=== PATIENT | female | born 1995 | race African-American/Black ===

== ENCOUNTER 2017-05-18 08:22 | Observation (INO) ==
--- NOTE | 2017-05-18 09:57 | Ultrasound Report ---
Procedure: Ultrasound OB First Trimester Findings: Vaginal bleeding positive test Transabdominal and transvaginal imaging utilized to visualize structures. Uterus: 11.3 x 6.7 x 8.4 cm. Erma Rump Length: No pole demonstrated. Gestational Sac: Single gestational sac noted. Heart Rate: None Enlarged yolk sac is present. Placenta cannot be identified definitely at this estimated gestational age. Amniotic fluid is appropriate for this estimated gestational age Left Ovary:3.3 cmx1.9 cmx2.2 cm. Normal color flow with small follicular cyst Right Ovary: 2.2 cmx,1.5 cmx,1.9 cm. Normal color flow with small follicular cyst The bladder is contracted No free fluid present. Impression: 1. Question component of blighted ovum/anembryonic with enlargement of the SAC present without obvious pole demonstrated. Follow-up examinations may be beneficial Ultrasound images were captured and stored PROCEDURE INTERPRETED AT [facility]PARTMENT OF RADIOLOG[facility] Final Report Signed by: Dr. Pj Wilkinson
--- NOTE | 2017-05-18 09:57 | Emergency Department Note ---
Ankur Sung Manpreet, am scribing for, and in the presence of, Estuardo Zaragoza MD 09: 55. Mila Sung James D, MD, personally performed the services described in this documentation, ascribed by Micky Pascual in my presence, and it is both accurate and complete [id number] . Arrival - Arrival Chief Complaint: Urogenital - Female Stated Complaint: and bleeding, about 12 weeks ED Nursing Triage Note: pt ambulatory to triage with c/o having vaginal bleeding onset today , pt states she woke up at 0700 today and noticed she was bleeding and having cramps. ... pt is 8wks gestation with due date of november 22. pt is a . Mode of Arrival: Ambulatory Limitations: No Limitations Source: Patient Time Seen by Provider: 05/18/17 08:52 - History of Present Illness HPI Narrative: Pt is a 22 y/o female who represents [facility] ED with vaginal bleeding onset at 0700 Tuesday. Pt states she woke up today and noticed bleeding and having lower Abd cramps. Pt states she noticed clots in her discharge today. Pt is 8 weeks into her second . A0. Pt's LNMP was during Ed of January. Pt states she went to Dr. Hughes's office yesterday. Pt denies any dysuira, vomiting, fever, or N/V/D. No other pains/complaints reported to the ED. Patient reports that her hCG yesterday at Dr. Hughes's office was greater than 2000. Onset (ago): hour(s) (a 0700) Consistency: constant Severity: moderate Allergies/Adverse Reactions: Allergies Allergy/AdvReac Type Severity Reaction Status Date / Time ampicillin [From Unasyn] Allergy Intermediate INJECTION Verified 05/18/17 08:41 SITE REACTION sulbactam [From Unasyn] Allergy Intermediate INJECTION Verified 05/18/17 08:41 SITE REACTION Home Medications: Home Medications Medication Instructions Recorded Confirmed Type No Known Home Medications [No 05/16/17 05/16/17 History Known Home Medications] Review of System - Review of System 12 point system: reviewed and no additional remarkable complaints except as stated - Review of System Constitutional: Absent: chills, diaphoresis, fever Respiratory: Absent: cough, respiratory distress, wheezing Cardiovascular: Absent: chest pain Gastrointestinal: Present: abdominal pain ("Abd cramping"). Absent: nausea, vomiting, diarrhea, hematemesis Genitourinary female: Present: discharge (Vaginal bleeding). Absent: dysuria Musculoskeletal: Absent: arm pain, back pain, leg pain, neck pain Neurological: Absent: headache, weakness Medical,Surgical,& Family Hx - Family History Family History: Reports;: Family Hypertension (AUNT) - Social History Smoking Status: Never smoker Frequency of Alcohol Use: None Type of Drug Use: None Exam Vital Signs: Vital Signs Temperature 97.9 F 05/18/17 08:38 Pulse Rate 89 05/18/17 08:38 Respiratory Rate 18 05/18/17 08:38 Blood Pressure 110/77 05/18/17 08:38 O2 Sat by Pulse Oximetry 100 05/18/17 08:38 GENERAL: This is a well-nourished well-developed black female in no apparent distress. VITAL SIGNS: Reviewed HEENT: Head is atraumatic and normocephalic. Pupils are equal round react to light. Extraocular movements are intact. Oropharynx is benign with moist mucous membranes. ABDOMEN: Abdomen is soft, nontender to palpation. There are no abdominal abnormal masses palpated. There is no organomegaly. Bowel sounds are present and active. SKIN: Skin is warm and dry. No rash. EXTREMITIES: Patient has full range of motion without tenderness. There is no pedal edema. NEUROLOGIC: Awake alert and oriented 4. Cranial nerves II through XII are grossly intact. Motor is 5 over 5 in all extremities bilaterally. Course - Consultations Consultation #1: Discussed with Dr. Sean Hughes. Patient will be admitted to . She will need undergo D&C for incomplete AB. Patient will be started on Pitocin. Time: 10:27 Results - Labs Lab Results: I have reviewed the patients labs Labs: Laboratory Tests 05/18/17 05/18/17 09:10 09:47 HCG Beta Subunit 1405.0 H Urine Color Yellow Urine Appearance Clear Urine pH 5.0 Ur Specific [place] 1.012 Urine Protein Negative Urine Glucose (UA) Negative Urine Ketones Negative Urine Blood Small Urine Nitrate Negative Urine Bilirubin Negative Urine Urobilinogen < 2.0 H Urine Leukocytes Negative Urine RBC 1 Urine WBC <1 Ur Squamous Epith Cells Occasional Urine Mucus Occasional Ur Culture Indicated? Not indicated - Diagnostic Findings Procedure: Ultrasound: report reviewed by me (Questionable blighted ovum or an embryonic .) Disposition Clinical Impression: Incomplete Case discussed with: patient Disposition: Disch To Home/Self Care Condition: Stable
[2017-05-18 10:05] LABS: Apearance,Urine CLEAR (Clear); Bilirubin,Urine Negative (Negative); Blood, Urine Small mg/dL (Negative); Glucose,Urine (UA) Negative (Negative); Ketones,Urine Negative (Negative); Mucus,Urine Occasional /LPF (Occasional); Nitrite,Urine Negative (Negative); Protein,Urine Negative; RBC,Urine 1 /HPF (0-4); Squamous Epithelial Cell,Urine Occasional /HPF (0-10); Urine Color Yellow (Yellow); Urine Specific Gravity 1.012 (1.001-1.035); Urine Urobilinogen < 2.0 EU/DL (0.2-1.0); WBC,Urine <1 /HPF (0-6)
[2017-05-18] MEDS ORDERED: OXYTOCIN/LR 20 UNIT/1,000 ML BAG IV ONE (10:24)
[2017-05-18] MEDS ORDERED: BISACODYL 10 MG SUPP RECTAL PRN (10:25)
[2017-05-18] MEDS ORDERED: MAGNESIUM HYDROXIDE SUSP 30 ML UDCUP PO PRN (10:25)
[2017-05-18] MEDS ORDERED: ONDANSETRON 4 MG/2 ML VIAL IV PRN (10:25)
[2017-05-18] MEDS ORDERED: IBUPROFEN 800 MG TABLET PO PRN (10:25)
[2017-05-18] MEDS ORDERED: LACTATED RINGERS 1,000 ML IV SCH (10:30)
[2017-05-18] MEDS: ACETAMINOPHEN 325 MG TABLET PO PRN (14:40)
--- NOTE | 2017-05-18 18:23 | OB/GYN History & Physical ---
History of Present Illness Chief complaint: Incomplete AB History of present illness: Ms. Diaz is a 22 year old female 2 para 1 who presents with vaginal bleeding to the emergency room. Titers 24 hours earlier was approximately 2200. Today the titers approximately 1400. Ultrasound demonstrated gestational sac. Bleeding has been somewhat minimal to moderate. This patient is stable and without any distress at this time. We will plan on continuing IV Pitocin repeat and a ultrasound in the a.m. Patient is passed all products of conception will then possibly will be discharged. If not plan on a dilatation and curettage. Home Medications Medication Instructions Recorded Confirmed Type No Known Home Medications [No 05/16/17 05/18/17 History Known Home Medications] Allergies Allergy/AdvReac Type Severity Reaction Status Date / Time ampicillin [From Unasyn] Allergy Intermediate INJECTION Verified 05/18/17 08:41 SITE REACTION sulbactam [From Unasyn] Allergy Intermediate INJECTION Verified 05/18/17 08:41 SITE REACTION Medical,Surgical,& Family Hx - Surgical History Reproductive Surgeries: Surgical HX of;: Section (2015) - Family History Family History: Reports;: Family Hypertension (AUNT), Family Stroke (AUNT & UNCLE) - Social History Smoking Status: Never smoker Frequency of Alcohol Use: None Type of Drug Use: None Exam PROPAGATOR - Constitutional Vitals: Vital Signs Temp Pulse Pulse Resp BP BP Pulse Ox 05/18/17 17:40 18 05/18/17 17:00 18 05/18/17 15:51 97.8 F 66 20 99/64 05/18/17 12:00 98.2 F 66 16 107/56 05/18/17 11:10 98.2 F 78 16 107/66 05/18/17 10:30 67 16 104/75 100 05/18/17 09:45 61 16 92/71 100 05/18/17 08:46 67 16 107/56 99 05/18/17 08:38 97.9 F 89 18 110/77 100 Pulse Ox 05/18/17 17:40 05/18/17 17:00 05/18/17 15:51 98 05/18/17 12:00 100 05/18/17 11:10 100 05/18/17 10:30 05/18/17 09:45 05/18/17 08:46 05/18/17 08:38 General appearance: no acute distress - Antepartum / Post Antepartum Exam Vagina: Present: normal moisture (Vaginal bleeding) - Head Head exam: Present: normal inspection - Eye Eye exam: Present: EOMI Pupils: Present: GERARDO - ENT ENT exam: Present: normal exam - Neck Neck exam: Present: normal inspection - Respiratory Respiratory exam: Present: clear to auscultation bilaterally - Breast Breasts: as per HPI Menstruation: as per HPI - Cardiovascular Cardiovascular exam: Present: regular rate and rhythm - GI/Abdominal GI/Abdominal exam: Present: normal bowel sounds - Extremities Exam Extremities exam: Present: normal inspection - Back Exam Back exam: Present: normal inspection - Neurological Exam Neurological exam: Present: alert, oriented X3 - Psychiatric Psychiatric exam: Present: normal affect - Skin Skin exam: Present: normal color Assessment and Plan (1) Threatened miscarriage Status: Acute Assessment and plan: IV Pitocin, repeat ultrasound in a.m., consent for dilatation and curettage. Current Visit: No
[2017-05-18] MEDS: OXYTOCIN/LR 20 UNIT/1,000 ML BAG IV SCH (19:19)
[2017-05-18] MEDS: DOCUSATE SODIUM 100 MG CAPSULE PO SCH (21:44)
[2017-05-19] MEDS: OXYTOCIN/LR 20 UNIT/1,000 ML BAG IV SCH (02:46)
[2017-05-19] MEDS: MEPERIDINE 50 MG/1 ML VIAL IV PRN ×2 (06:09→09:11)
--- NOTE | 2017-05-19 08:42 | Ultrasound Report ---
History: Retained products of conception Date: 05/19/2017 Study: Obstetrical ultrasound limited Comparison exam: 05/18/2017 Real-time ultrasound images are captured and archived. There is thought to be a residual irregular elongated gestational sac in the uterine body. There is no definite pole. The exam is otherwise unchanged. Impression: There is sonographic evidence of retained products of conception PROCEDURE INTERPRETED AT [facility] Final Report Signed by: Dr. Keke Szymanski
[2017-05-19] MEDS: DOCUSATE SODIUM 100 MG CAPSULE PO SCH (09:18)
--- NOTE | 2017-05-19 10:58 | Operative Note ---
Date of procedure: 05/19/17 Procedure: Preoperative diagnosis: Incomplete AB Postoperative diagnosis: Same Anesthesia: General. endotracheal anesthesia Estimated blood loss: [] 50 Surgeon: Dr. Hughes Procedure: Dilatation and curettage The patient was taken to operating suite and placed in supine position and preparation of the perineum. A weighted speculum was placed in the posterior portion vagina and a single-tooth tenaculum was used to grasp the anterior lip of the cervix. The cervix was dilated to [8] [place]uvian A suction curette was then placed inside. Gentle scraping was obtained in all 4 quadrants. [A moderate amount of tissue was obtained] at this particular time. Hemostasis was maintained at this particular time. Patient was extubated in the operating room and taken to recovery room in stable condition. Surgeon / Physician: Cedric Hughes Discharge Plan - Discharge Data Condition at Discharge: Stable Discharge Diet: advance to your usual diet Activity: resume usual activities as tolerated Hygiene: no restrictions Weight Bearing at Discharge: full weight bearing Driving: no restrictions Contact your physician if you experience:: fever over 101, Bleeding - Discharge Medications New HYDROcodone/ACETAMIN 5-325 [[place] 5-325] 1 tablet PO Q4H #30 tablet Ibuprofen Tab [Motrin Tab] 800 mg PO Q8H PRN #30 tablet PRN Reason: Pain Moderate (4-7) No Action No Known Home Medications [No Known Home Medications] - Follow Up or Referral - Forms/Instructions
--- NOTE | 2017-05-19 12:35 | Anesthesia Post-Op ---
Anesthesia Post OP - Post Ansesthetic Evaluation Patient seen in post op: Yes Resp: within normal limits CV: within normal limits Mental: within normal limits Temp: within normal limits [id number]: within normal limits Nausea and Vomiting: within normal limits Pain: within normal limits
[2017-05-19] MEDS: ACETAMINOPHEN 325 MG TABLET PO PRN (16:31)
[2017-05-19 16:54] VITALS: BP 90/61
--- NOTE | 2017-05-20 12:19 | Pathology Report from [facility] ---
[facility] [place] ACCESSION # : [id number] PATIENT NAME : Griselda Calabrese ORDERING DR : SHERIF MADISON MD CLINICAL HX: Incomplete POST-OP DX: Same SPECIMEN INFO: #1 & #2 Uterine contents GROSS DESCRIPTION: Received in formalin in two containers labeled GRISELDA CALABRESE & # 1 & #2 with the first container containing a pink brock tissue fragment measuring 6.5 x 2.9 cm with a 1.5 x 1.4 cm fluid filled sac present. Chorionic villi is grossly identified. No tissue is definitely seen. Telecommunication Engineer tissue is submitted in cassette A. Container #2 is a specimen trap containing multiple fragments of hyperemic brock tissue and some clotted blood measuring 8.9 x 6.4 cm in aggregate. Possible chorionic villi is identified. Telecommunication Engineer tissue is submitted in cassette B. DIAGNOSIS FOR GRISELDA CALABRESE: #1 UTERINE CONTENTS, D & C: Fragments of chorionic villi, membranes, and decidualized endometrium admixed with blood, c/ w products of conception.#2 UTERINE CONTENTS, D & C: Fragments of chorionic villi and decidualized endometrium admixed with blood and necrosis, c/w products of conception. COLLECTED DATE: 05/19/2017 [facility] REPORT DATE: 05/20/2017 ELECTRONICALLY SIGNED BY: Priyanka Flores M.D. 05/20/2017 - 10:24:57 JANA
== END 2017-05-19 19:40 | disposition home or self-care (01) ==
LOC: N.ED 08:22 → N.EDINP 08:22 → N.OB 11:03
PROVIDERS: ADMIT Obstetrics & Gynecology; ATTEND Obstetrics & Gynecology

== ENCOUNTER 2018-04-05 06:16 | Inpatient (IN) ==
[2018-04-05] MEDS ORDERED: FAMOTIDINE 20 MG/2 ML VIAL IV ONE (06:28)
[2018-04-05] MEDS ORDERED: CITRIC ACID/SODIUM CITRATE 30 ML UDCUP PO ONE (06:28)
[2018-04-05] MEDS ORDERED: CLINDAMYCIN INJ 900 MG in PREMIX 1 EACH IV ONE (06:28)
[2018-04-05 06:57] LABS: Basophils % 0.1 % (0.0-0.8); Eosinophils # 0.1 10*3/uL (0.0-0.87); Eosinophils % 1.6 % (0.00-10.9); Hematocrit 35.3 VOL% (35.7-47.0); Hemoglobin 11.3 GM/DL (12.0-16.0); Immature Granulocytes % 0.4 %; Immature Granulocytes Absolute 0.03 #; Lymphocytes # 1.9 10*3/uL (1.4-4.0); Lymphocytes % 28.2 % (21.3-54.2); Mean Corpuscular Hemoglobin 27 PG (27-34); Mean Corpuscular Volume 82.7 FL (87-102); Mean Platelet Volume 9.9 FL (9.6-12.0); Monocytes # 0.6 10*3/uL (0.11-0.8); Monocytes % 9.5 % (1.7-12.7); Neutrophils % 60.2 % (38.7-73.9); Platelet Count 236 T/CUMM (130-400); Red Blood Count 4.27 MC/CUMM (3.8-5.5); Red Cell Distribution Width 15.7 % (9.3-17.3); White Blood Count 6.7 T/CUMM (4-12)
[2018-04-05] MEDS ORDERED: OXYTOCIN 10 UNIT/ML VIAL IM ONE (07:16)
[2018-04-05] MEDS ORDERED: OXYTOCIN/LR 30 UNIT/1,000 ML BAG IV ONE (07:16)
[2018-04-05] MEDS: LACTATED RINGERS 1,000 ML IV SCH ×2 (07:17→08:12)
[2018-04-05 07:46] LABS: Alanine Aminotransferase 31 U/L (13-56); Albumin 2.3 G/DL (3.4-5.0); Alkaline Phosphatase 146 U/L (45-117); Aspartate Amino Transferase 21 U/L (0-37); Bilirubin,Total < 0.39 MG/DL (0.2-1.0); Blood Urea Nitrogen 6 MG/DL (7-18); Calcium 8.2 MG/DL (8.5-10.1); Glucose 77 MG/DL (74-106); Osmolality,Calculated 271.7 MOS/KG (273-304); Potassium 3.5 MMOL/L (3.5-5.1); Sodium 138 MMOL/L (136-145); Total Protein 6.2 G/DL (6.4-8.3)
[2018-04-05 10:03] LABS: Cord Venous Blood HCO3 22.6 MMOL/L; Cord Venous Blood PCO2 38.9 MMHG; Cord Venous Blood PO2 35.5
[2018-04-05] MEDS ORDERED: fentaNYL 100 MCG/2 ML VIAL ONE (10:12)
[2018-04-05] MEDS ORDERED: PHENYLEPHRINE 1 MG/10 ML SYRINGE IV ONE (10:12)
[2018-04-05] MEDS ORDERED: ONDANSETRON 4 MG/2 ML VIAL ONE (10:13)
[2018-04-05] MEDS ORDERED: MORPHINE 10 MG/10 ML VIAL ONE (10:13)
[2018-04-05] MEDS ORDERED: MIDAZOLAM 2 MG/2 ML VIAL ONE (10:13)
[2018-04-05 10:17] LABS: Apearance,Urine CLEAR (Clear); Bilirubin,Urine Negative (Negative); Blood, Urine Negative (Negative); Glucose,Urine (UA) Negative (Negative); Ketones,Urine Negative (Negative); Mucus,Urine Occasional /LPF (Occasional); Nitrite,Urine Negative (Negative); Protein,Urine Negative; RBC,Urine 2 /HPF (0-4); Squamous Epithelial Cell,Urine Occasional /HPF (0-10); Urine Color Yellow (Yellow); Urine Specific Gravity 1.008 (1.001-1.035); Urine Urobilinogen < 2.0 EU/DL (0.2-1.0); WBC,Urine <1 /HPF (0-6)
[2018-04-05] MEDS ORDERED: ONDANSETRON 4 MG/2 ML VIAL IV PRN (10:57)
[2018-04-05] MEDS ORDERED: ACETAMINOPHEN 325 MG TABLET PO PRN (10:57)
[2018-04-05] MEDS ORDERED: OXYTOCIN/LR 20 UNIT/1,000 ML BAG IV ONE (13:00)
[2018-04-05] MEDS: HYDROmorphone 2 MG/1 ML VIAL IV PRN ×3 (14:30→19:53)
[2018-04-05] MEDS: CLINDAMYCIN INJ 900 MG in PREMIX 1 EACH IV SCH (17:44)
[2018-04-05 17:50] LABS: Basophils % 0.2 % (0.0-0.8); Eosinophils # 0.1 10*3/uL (0.0-0.87); Eosinophils % 0.8 % (0.00-10.9); Hematocrit 31.1 VOL% (35.7-47.0); Hemoglobin 10.4 GM/DL (12.0-16.0); Immature Granulocytes % 0.4 %; Immature Granulocytes Absolute 0.04 #; Lymphocytes # 1.8 10*3/uL (1.4-4.0); Lymphocytes % 19.6 % (21.3-54.2); Mean Corpuscular HGB Conc 33.4 GM/DL (32-36); Mean Corpuscular Hemoglobin 27 PG (27-34); Mean Corpuscular Volume 81.4 FL (87-102); Mean Platelet Volume 10.1 FL (9.6-12.0); Monocytes # 0.9 10*3/uL (0.11-0.8); Neutrophils # 6.2 10*3/uL (1.4-7.4); Platelet Count 213 T/CUMM (130-400); Red Blood Count 3.82 MC/CUMM (3.8-5.5); Red Cell Distribution Width 15.6 % (9.3-17.3)
[2018-04-05] MEDS: IBUPROFEN 800 MG TABLET PO PRN (20:05)
[2018-04-05] MEDS: DOCUSATE SODIUM 100 MG CAPSULE PO SCH (22:59)
[2018-04-06] MEDS: CLINDAMYCIN INJ 900 MG in PREMIX 1 EACH IV SCH (01:44)
[2018-04-06] MEDS: IBUPROFEN 800 MG TABLET PO PRN ×2 (03:59→21:26)
[2018-04-06 04:37] LABS: Basophils % 0.2 % (0.0-0.8); Eosinophils # 0.1 10*3/uL (0.0-0.87); Eosinophils % 0.7 % (0.00-10.9); Hematocrit 31.3 VOL% (35.7-47.0); Hemoglobin 10.1 GM/DL (12.0-16.0); Immature Granulocytes % 0.7 %; Immature Granulocytes Absolute 0.07 #; Lymphocytes # 1.1 10*3/uL (1.4-4.0); Mean Corpuscular HGB Conc 32.3 GM/DL (32-36); Mean Corpuscular Hemoglobin 27 PG (27-34); Mean Corpuscular Volume 82.4 FL (87-102); Mean Platelet Volume 10.3 FL (9.6-12.0); Monocytes % 10.3 % (1.7-12.7); Neutrophils # 7.7 10*3/uL (1.4-7.4); Neutrophils % 77.1 % (38.7-73.9); Platelet Count 227 T/CUMM (130-400); Red Cell Distribution Width 15.4 % (9.3-17.3); White Blood Count 9.9 T/CUMM (4-12)
[2018-04-06] MEDS ORDERED: CYCLOBENZAPRINE 10 MG TABLET PO PRN (09:18)
[2018-04-06] MEDS: MULTIVITAMIN (PRENATAL) TABLET PO SCH (09:41)
[2018-04-06] MEDS: DOCUSATE SODIUM 100 MG CAPSULE PO SCH ×2 (09:41→21:23)
[2018-04-06] MEDS: oxyCODONE/ACETAMINOPHEN 5-325 MG TABLET PO PRN ×2 (09:46→21:24)
[2018-04-06] MEDS ORDERED: LACTATED RINGERS 1,000 ML IV ONE (10:03)
[2018-04-06] MEDS ORDERED: BUTALBITAL/ACETAMIN/CAFFEINE 50-325-40 MG TABLET PO ONE (10:03)
[2018-04-06] MEDS ORDERED: LACTATED RINGERS 500 ML IV ONE (10:03)
[2018-04-06] MEDS ORDERED: LACTATED RINGERS 1,000 ML IV SCH (10:30)
[2018-04-06] MEDS: SUMAtriptan 6 MG/0.5 ML VIAL SUBCUT PRN ×2 (11:58→23:46)
[2018-04-06] MEDS: SIMETHICONE CHEW 80 MG TABLET PO PRN ×2 (13:47→21:24)
[2018-04-06] MEDS ORDERED: BUTALBITAL/ACETAMIN/CAFFEINE 50-325-40 MG TABLET PO PRN (14:05)
[2018-04-06] MEDS ORDERED: CYCLOBENZAPRINE 10 MG TABLET PO SCH (15:00)
[2018-04-06] MEDS: MAGNESIUM HYDROXIDE SUSP 30 ML UDCUP PO PRN (21:23)
[2018-04-07] MEDS: oxyCODONE/ACETAMINOPHEN 5-325 MG TABLET PO PRN ×2 (04:40→22:20)
[2018-04-07] MEDS: CYCLOBENZAPRINE 10 MG TABLET PO SCH ×4 (08:02→22:09)
[2018-04-07] MEDS: SIMETHICONE CHEW 80 MG TABLET PO PRN ×2 (08:04→15:06)
[2018-04-07] MEDS: MULTIVITAMIN (PRENATAL) TABLET PO SCH (08:04)
[2018-04-07] MEDS: MAGNESIUM HYDROXIDE SUSP 30 ML UDCUP PO PRN (08:04)
[2018-04-07] MEDS: DOCUSATE SODIUM 100 MG CAPSULE PO SCH ×2 (08:04→20:46)
[2018-04-07] MEDS ORDERED: MEPERIDINE 50 MG/1 ML VIAL IM ONE (12:08)
[2018-04-07] MEDS ORDERED: SODIUM CHLORIDE 0.9% 1,000 ML IV SCH (16:00)
[2018-04-07] MEDS: IBUPROFEN 800 MG TABLET PO PRN (16:09)
[2018-04-08] MEDS: IBUPROFEN 800 MG TABLET PO PRN ×2 (04:44→13:09)
[2018-04-08] MEDS: oxyCODONE/ACETAMINOPHEN 5-325 MG TABLET PO PRN ×2 (04:45→13:08)
[2018-04-08] MEDS: MULTIVITAMIN (PRENATAL) TABLET PO SCH (09:15)
[2018-04-08] MEDS: DOCUSATE SODIUM 100 MG CAPSULE PO SCH (09:15)
[2018-04-08 11:50] VITALS: BP 89/49
== END 2018-04-08 14:30 | disposition home or self-care (01) | DRG 766 ==
LOC: N.LDOUT 06:16 → N.OB 06:20 → N.LD 12:44 → N.OB 13:52 → N.LD 04-07 17:40 → N.OB 04-07 19:28
PROVIDERS: ADMIT Obstetrics & Gynecology; ATTEND Obstetrics & Gynecology
PROC: LDCSECT (ICD-10-PCS; 2018-04-05 09:00)

== ENCOUNTER 2019-07-09 10:00 | Inpatient (IN) ==
[2019-07-09] MEDS ORDERED: CLINDAMYCIN INJ 900 MG in PREMIX 1 EACH IV ONE (10:13)
[2019-07-09] MEDS ORDERED: CITRIC ACID/SODIUM CITRATE 30 ML UDCUP PO ONE (10:13)
[2019-07-09] MEDS ORDERED: FAMOTIDINE 20 MG/2 ML VIAL IV ONE (10:13)
[2019-07-09] MEDS: LACTATED RINGERS 1,000 ML IV SCH ×2 (10:35→12:40)
[2019-07-09 10:43] LABS: Basophils % 0.1 % (0.0-0.8); Eosinophils # 0.1 10*3/uL (0.0-0.87); Hematocrit 29.4 VOL% (35.7-47.0); Hemoglobin 9.2 GM/DL (12.0-16.0); Immature Granulocytes % 0.9 %; Immature Granulocytes Absolute 0.06 #; Lymphocytes # 1.4 10*3/uL (1.4-4.0); Lymphocytes % 19.9 % (21.3-54.2); Mean Corpuscular HGB Conc 31.3 GM/DL (32-36); Mean Corpuscular Volume 79.7 FL (87-102); Mean Platelet Volume 10.4 FL (9.6-12.0); NRBC # 0.02 10*3/uL; Neutrophils % 68.1 % (38.7-73.9); Platelet Count 216 T/CUMM (130-400); Red Blood Count 3.69 MC/CUMM (3.8-5.5); Red Cell Distribution Width 15.2 % (9.3-17.3); White Blood Count 6.9 T/CUMM (4-12)
[2019-07-09 11:03] LABS: Albumin 2.6 G/DL (3.4-5.0); Bilirubin,Total 0.4 MG/DL (0.2-1.0); Calcium 8.6 MG/DL (8.5-10.1); Osmolality,Calculated 274.4 MOS/KG (273-304); Total Protein 6.8 G/DL (6.4-8.3)
[2019-07-09] MEDS ORDERED: PHENYLEPHRINE 1 MG/10 ML SYRINGE IV ONE ×2 (11:12→14:10)
[2019-07-09] MEDS ORDERED: DEXAMETHASONE 4 MG/1 ML VIAL ONE (11:13)
[2019-07-09] MEDS ORDERED: KETOROLAC 60 MG/2 ML VIAL IM ONE (11:13)
[2019-07-09] MEDS ORDERED: ONDANSETRON 4 MG/2 ML VIAL ONE (11:13)
[2019-07-09] MEDS ORDERED: BUPIVACAINE 0.5% 50 ML VIAL ONE (11:13)
[2019-07-09] MEDS ORDERED: fentaNYL 100 MCG/2 ML VIAL ONE (11:13)
[2019-07-09] MEDS ORDERED: MORPHINE 10 MG/10 ML VIAL ONE (11:13)
[2019-07-09] MEDS ORDERED: BUPIVACAINE SPINAL 0.75% 2 ML AMP SPINAL ONE (11:13)
[2019-07-09] MEDS ORDERED: EPINEPHrine 1 MG/ML VIAL ONE (11:13)
[2019-07-09] MEDS ORDERED: OXYTOCIN 10 UNIT/ML VIAL ONE (12:32)
[2019-07-09] MEDS ORDERED: miSOPROStoL 200 MCG TABLET ONE ×2 (12:33→16:09)
[2019-07-09] MEDS ORDERED: METHYLERGONOVINE 0.2 MG/1 ML AMP ONE ×2 (12:33→15:34)
[2019-07-09] MEDS ORDERED: CARBOPROST TROMETHAMINE 250 MCG/ML AMP IM ONE (12:34)
[2019-07-09] MEDS ORDERED: OXYTOCIN/LR 30 UNIT/1,000 ML BAG IV ONE (12:34)
[2019-07-09] MEDS ORDERED: OXYTOCIN 10 UNIT/ML VIAL IM ONE (13:21)
[2019-07-09 13:41] LABS: Cord Venous Blood HCO3 21.8 MMOL/L; Cord Venous Blood PCO2 38.8 MMHG; Cord Venous Blood PO2 33.7 MMHG
[2019-07-09] MEDS ORDERED: OXYTOCIN/LR 20 UNIT/1,000 ML BAG IV ONE ×3 (13:56→14:02)
[2019-07-09 14:00] LABS: Apearance,Urine CLEAR (Clear); Bacteria,Urine Occasional /HPF (Few); Bilirubin,Urine Negative (Negative); Blood, Urine Negative (Negative); Glucose,Urine (UA) Negative (Negative); Ketones,Urine Negative (Negative); Nitrite,Urine Negative (Negative); Protein,Urine Negative; RBC,Urine <1 /HPF (0-4); Urine Color Straw (Yellow); Urine Specific Gravity 1.005 (1.001-1.035); Urine Urobilinogen < 2.0 EU/DL (0.2-1.0); WBC,Urine <1 /HPF (0-6)
[2019-07-09] MEDS ORDERED: ONDANSETRON 4 MG/2 ML VIAL IV PRN (14:02)
[2019-07-09] MEDS ORDERED: RHO(D) IMMUNE GLOBULIN 300 MCG SYRINGE IM ONE (14:02)
[2019-07-09] MEDS ORDERED: ACETAMINOPHEN 325 MG TABLET PO PRN (14:02)
[2019-07-09] MEDS ORDERED: SIMETHICONE CHEW 80 MG TABLET PO PRN (14:02)
[2019-07-09] MEDS ORDERED: ceFAZolin 1,000 MG in SYRINGE 1 EACH IV SCH (14:30)
[2019-07-09] MEDS ORDERED: LACTATED RINGERS 1,000 ML IV SCH (14:30)
[2019-07-09] MEDS ORDERED: METHYLERGONOVINE 0.2 MG/1 ML AMP IM ONE (15:38)
[2019-07-09] MEDS ORDERED: diphenhydrAMINE 50 MG/1 ML VIAL ONE (15:42)
[2019-07-09] MEDS: diphenhydrAMINE 50 MG/1 ML VIAL IV PRN ×2 (15:44→20:35)
[2019-07-09 16:02] LABS: Basophils % 0.1 % (0.0-0.8); Eosinophils % 0.3 % (0.00-10.9); Hematocrit 24.8 VOL% (35.7-47.0); Hemoglobin 7.8 GM/DL (12.0-16.0); Immature Granulocytes % 0.5 %; Immature Granulocytes Absolute 0.05 #; Lymphocytes # 0.9 10*3/uL (1.4-4.0); Lymphocytes % 9.6 % (21.3-54.2); Mean Corpuscular HGB Conc 31.5 GM/DL (32-36); Mean Corpuscular Volume 81.8 FL (87-102); Mean Platelet Volume 10.4 FL (9.6-12.0); Monocytes % 6.5 % (1.7-12.7); Platelet Count 169 T/CUMM (130-400); Red Blood Count 3.03 MC/CUMM (3.8-5.5); Red Cell Distribution Width 15.1 % (9.3-17.3); White Blood Count 9.8 T/CUMM (4-12)
[2019-07-09] MEDS ORDERED: miSOPROStoL 200 MCG TABLET RECTAL ONE (16:10)
[2019-07-09] MEDS ORDERED: hydrOXYzine HCL 25 MG/1 ML VIAL IM PRN (16:33)
[2019-07-09] MEDS ORDERED: HYDROmorphone 2 MG/1 ML VIAL IV PRN (16:33)
[2019-07-09] MEDS ORDERED: SODIUM CHLORIDE 0.9% 1,000 ML IV PRN (16:33)
[2019-07-09] MEDS ORDERED: diphenhydrAMINE 50 MG/1 ML VIAL IV PRN (16:33)
[2019-07-09] MEDS: KETOROLAC 30 MG/1 ML VIAL IV SCH (20:31)
[2019-07-09] MEDS: CLINDAMYCIN INJ 900 MG in PREMIX 1 EACH IV SCH (21:28)
[2019-07-09] MEDS: DOCUSATE SODIUM 100 MG CAPSULE PO SCH (21:32)
[2019-07-10] MEDS: KETOROLAC 30 MG/1 ML VIAL IV SCH ×2 (02:17→12:20)
[2019-07-10] MEDS: diphenhydrAMINE 50 MG/1 ML VIAL IV PRN (02:17)
[2019-07-10] MEDS: CLINDAMYCIN INJ 900 MG in PREMIX 1 EACH IV SCH (04:41)
[2019-07-10 05:19] LABS: Basophils % 0.1 % (0.0-0.8); Eosinophils % 0.1 % (0.00-10.9); Hematocrit 27.3 VOL% (35.7-47.0); Hemoglobin 8.7 GM/DL (12.0-16.0); Immature Granulocytes % 0.9 %; Immature Granulocytes Absolute 0.12 #; Lymphocytes # 2.1 10*3/uL (1.4-4.0); Lymphocytes % 15.3 % (21.3-54.2); Mean Corpuscular HGB Conc 31.9 GM/DL (32-36); Mean Platelet Volume 10.7 FL (9.6-12.0); Monocytes % 10.1 % (1.7-12.7); NRBC # 0.02 10*3/uL; Neutrophils % 73.5 % (38.7-73.9); Platelet Count 185 T/CUMM (130-400); Red Blood Count 3.33 MC/CUMM (3.8-5.5); Red Cell Distribution Width 14.9 % (9.3-17.3); White Blood Count 13.6 T/CUMM (4-12)
[2019-07-10] MEDS: MAGNESIUM HYDROXIDE SUSP 30 ML UDCUP PO PRN ×2 (10:05→21:10)
[2019-07-10] MEDS: DOCUSATE SODIUM 100 MG CAPSULE PO SCH ×2 (10:06→21:10)
[2019-07-10] MEDS: MULTIVITAMIN (PRENATAL) TABLET PO SCH (10:06)
[2019-07-10] MEDS: METOCLOPRAMIDE 10 MG TABLET PO SCH ×4 (10:06→23:54)
[2019-07-10] MEDS: IBUPROFEN 800 MG TABLET PO PRN (17:22)
[2019-07-11] MEDS: IBUPROFEN 800 MG TABLET PO PRN ×3 (02:24→23:12)
[2019-07-11] MEDS: METOCLOPRAMIDE 10 MG TABLET PO SCH ×3 (06:28→18:17)
[2019-07-11] MEDS ORDERED: MAGNESIUM CITRATE 300 ML BOTTLE PO ONE (07:58)
[2019-07-11] MEDS: DOCUSATE SODIUM 100 MG CAPSULE PO SCH ×2 (08:23→21:39)
[2019-07-11] MEDS: MAGNESIUM HYDROXIDE SUSP 30 ML UDCUP PO PRN ×2 (08:23→21:39)
[2019-07-11] MEDS: MULTIVITAMIN (PRENATAL) TABLET PO SCH (08:23)
[2019-07-11] MEDS ORDERED: INFLUENZA VIRUS VACCINE 0.5 ML SYRINGE IM ONE (10:16)
[2019-07-12] MEDS: METOCLOPRAMIDE 10 MG TABLET PO SCH ×3 (00:22→14:43)
[2019-07-12 08:09] VITALS: BP 108/67
[2019-07-12] MEDS: MULTIVITAMIN (PRENATAL) TABLET PO SCH (09:32)
[2019-07-12] MEDS: DOCUSATE SODIUM 100 MG CAPSULE PO SCH (09:32)
== END 2019-07-12 12:55 | disposition home or self-care (01) | DRG 540 ==
LOC: N.LD 10:00 → N.OB 07-10 00:17
PROVIDERS: ADMIT Obstetrics & Gynecology; ATTEND Obstetrics & Gynecology
PROC: LDCSECT (ICD-10-PCS; 2019-07-09 12:45)